=== PATIENT | male | born 1945 | race Caucasian/White ===

== ENCOUNTER → 2017-02-22 | Outpatient (CLI) | payer OTHER, BC | LOC: BMCIMAGING 13:31 | PROVIDERS: ATTEND Podiatrist Foot & Ankle Surgery | DX: M79.671 Pain in right foot (principal); M19.071 Primary osteoarthritis, right ankle and foot ==

== ENCOUNTER → 2017-03-12 | Outpatient (CLI) | payer OTHER, BC | LOC: FCPNEURO 20:00 | PROVIDERS: ATTEND Internal Medicine Sleep Medicine | DX: G47.31 Primary central sleep apnea (principal); G47.33 Obstructive sleep apnea (adult) (pediatric); G47.61 Periodic limb movement disorder ==

== ENCOUNTER → 2017-10-11 | Outpatient (CLI) | payer OTHER, BC | LOC: BHCLAF 09:30 | PROVIDERS: ATTEND Internal Medicine Cardiovascular Disease | DX: R07.89 Other chest pain (principal); I10 Essential (primary) hypertension | CPT/HCPCS: 93005-PO ==

== ENCOUNTER 2017-11-07 12:34 | Emergency (ER) | payer OTHER, BC ==
--- NOTE | 2017-11-07 13:34 | EDPHY ---
H & P Time Seen by Provider: 11/07/17 12:38 HPI/ROS: This patient complains of left leg pain 8/10 intensity sharp feeling associated swelling. The pain is to the posterior calf with swelling evident in the calf and ankle today. Symptoms started early this morning. He took ibuprofen 40 mg at 11:00 a.m. With mild relief and reports worsening when he walks. No other exacerbating factors. He denies any recent injury. He has been undergoing some physical therapy for left knee osteoarthritis and received a steroid injection from Dr. Gaurang Taylor, orthopedist 2 weeks ago without complication. He reports that his knee pain is improved and the calf pain is new again over the past 24 hr. Past Medical/Surgical History: No history of DVT or PE No family history of DVT or PE Social History: No recent prolonged travel, immobilization or surgery Smoking Status: Former smoker Physical Exam: General Appearance: Alert, no distress. Eyes: Pupils equal and round no pallor or injection. ENT, Mouth: Mucous membranes moist. Respiratory: There are no retractions, lungs are clear to auscultation. Cardiovascular: Regular rate and rhythm. No murmur gallop rub. No peripheral edema. No chest wall tenderness. Gastrointestinal: Abdomen is soft and nontender, no masses, bowel sounds normal. Neurological: GCS 15 Skin: Warm and dry, no rashes. Musculoskeletal: Neck is supple nontender. Extremities are symmetrical, full range of motion. Psychiatric: Mood and affect are normal DIFFERENTIAL DIAGNOSIS: After history and physical exam differential diagnosis was considered for [ ] Constitutional: Initial Vital Signs Temperature (C) 36.5 C 11/07/17 12:36 Heart Rate 52 L 11/07/17 12:36 Respiratory Rate 16 11/07/17 12:36 Blood Pressure 155/87 H 11/07/17 12:36 O2 Sat (%) 95 11/07/17 12:36 O2 Delivery Mode Room Air Allergies/Adverse Reactions: No Known Allergies Allergy (Verified 11/07/17 12:45) Home Medications: Medication Instructions Recorded Amlodipine-Olmesartan 10-20 mg 11/07/17 Aspirin/Dipyridamole 11/07/17 Esomeprazole Magnesium 11/07/17 Ezetimibe-Simvastatin 10-10 mg 11/07/17 Hydrochlorothiazide 11/07/17 Magnesium 11/07/17 Potassium Chloride 07/12/18 MDM/Departure - MDM Diagnostics: Doppler ultrasound reveals a Mcadams's cyst without evidence of DVT in the affected left leg. This finding is related via the radiologist report. Imaging: Discussed imaging studies w/ bilingual call center representative Radiologist ED Course/Re-evaluation: The patient declined analgesics for his pain. He is sent for Doppler ultrasound of lower extremity to rule out DVT Counseled patient regarding his Mcadams cyst. No evidence of DVT. The patient was uninterested in any other form of analgesics. I suggest he might benefit from the use of a cane in terms of comfort. He will see his orthopedic physician in 4 days on Saturday for follow-up. - Depart Disposition: Home, Routine, Self-Care Clinical Impression: Mcadams cyst Qualifiers: Laterality: left Qualified Code(s): M71.22 - Synovial cyst of popliteal space [ Mcadams], left knee Leg pain Qualifiers: Laterality: left Qualified Code(s): M79.605 - Pain in left leg Condition: Good Instructions: Bakers Cyst (ED) Additional Instructions: Diagnosis: Mcadams cyst and leg pain Plan: Continue [id number] mg per 6 hr as needed for pain Tylenol in addition if needed Elevate leg whenever possible Follow up with the air cargo specialist on Saturday for further evaluation. Referrals: Alex Gomez MD [Primary Care Provider] - As per Instructions
[2017-11-07 14:39] VITALS: BP 163/92
== END 2017-11-07 14:40 | disposition home or self-care (01) ==
LOC: CED 12:34
DX: M71.22 Synovial cyst of popliteal space [Baker], left knee (principal); Z79.82 Long term (current) use of aspirin; Z87.891 Personal history of nicotine dependence
CPT/HCPCS: 93971-PO

== ENCOUNTER → 2018-01-31 | Outpatient (CLI) | payer OTHER, BC | LOC: BHCLAF 10:45 | PROVIDERS: ATTEND Internal Medicine Cardiovascular Disease | DX: R07.9 Chest pain, unspecified (principal); I10 Essential (primary) hypertension | CPT/HCPCS: 93306-PO ==

== ENCOUNTER → 2018-03-18 | Outpatient (CLI) | payer OTHER, BC | LOC: BHFA 14:00 | PROVIDERS: ATTEND Internal Medicine Cardiovascular Disease | DX: R07.9 Chest pain, unspecified (principal) | CPT/HCPCS: 78452; 93017; A9500; J2785 ==

== ENCOUNTER 2018-07-26 09:47 | Emergency (ER) | payer OTHER, BC ==
[2018-07-26] MEDS ORDERED: ASPIRIN 81 MG CHEWABLE TAB PO ONE (10:03)
--- NOTE | 2018-07-26 10:07 | EDPHY ---
H & P Stated Complaint: cp x 3 days left sided and left back pain Time Seen by Provider: 07/26/18 09:52 HPI/ROS: CHIEF COMPLAINT: Chest pain HISTORY OF PRESENT ILLNESS: Patient is a 73-year-old man with a history of hypertension and a remote history of renal cancer post resection who comes to the emergency department complaining of left-sided chest pain that radiates to his back. He states that it has been constant for 3 days. It is not worsening. He denies shortness of breath but does have increased pain with deep inspiration. His also notes that his pain increases when he walks. He denies this. He cannot describe the pain whether it is sharp or tight or heaviness etc. No fevers. No cough. No shortness of breath. No recent infections. No nausea vomiting. No diaphoresis. His does add that he has had a history of anxiety ever since he was treated for hep C and around the same time self discontinued his Zoloft. No leg pain or swelling. No history of cardiac or pulmonary disease. Severity: Moderate Modifying factors: Worsened Ambulation or deep inspiration REVIEW OF SYSTEMS: Constitutional: denies: chills, fever, recent illness, recent injury EENTM: denies: blurred vision, double vision, nose congestion Respiratory: denies: cough, shortness of breath Cardiac: See HPI Gastrointestinal/Abdominal: denies: abdominal pain, diarrhea, nausea, vomiting, blood streaked stools Genitourinary: denies: dysuria, frequency, hematuria, pain Musculoskeletal: denies: joint pain, muscle pain Skin: denies: lesions, rash, jaundice, bruising Neurological: denies: headache, numbness, paresthesia, tingling, dizziness, weakness Hematologic/Lymphatic: denies: blood clots, easy bleeding, easy bruising Immunologic/allergic: denies: HIV/AIDS, transplant 10 systems reviewed and negative except as noted EXAM: GENERAL: Well-appearing, well-nourished and in no acute distress. HEAD: Atraumatic, normocephalic. EYES: Pupils equal round and reactive to light, extraocular movements intact, sclera anicteric, conjunctiva are normal. ENT: TMs normal, nares patent, oropharynx clear without exudates. Moist mucous membranes. NECK: Normal range of motion, supple without lymphadenopathy or JVD. LUNGS: Breath sounds clear to auscultation bilaterally and equal. No wheezes rales or rhonchi. HEART: Regular rate and rhythm systolic murmur, no rubs or gallops. ABDOMEN: Soft, nontender, normoactive bowel sounds. No guarding, no rebound. No masses appreciated. BACK: No CVA tenderness, no spinal tenderness, step-offs or deformities EXTREMITIES: Normal range of motion, no pitting or edema. No clubbing or cyanosis. NEUROLOGICAL: Cranial nerves II through XII grossly intact. Normal speech, normal gait. 5/5 strength, normal movement in all extremities, normal sensation , normal reflexes PSYCH: Normal mood, normal affect. SKIN: Warm, dry, normal turgor, no visible rashes or lesions. Source: Patient, Family Exam Limitations: No limitations - Personal History Current Tetanus/Diphtheria Vaccine: Unsure Current Tetanus Diphtheria and Acellular Pertussis (TDAP): Unsure - Medical/Surgical History Hx Asthma: No Hx Chronic Respiratory Disease: No Hx Diabetes: No Hx Cardiac Disease: Yes Hx Renal Disease: Yes Hx Cirrhosis: No Hx Alcoholism: No Hx HIV/AIDS: No Hx Splenectomy or Spleen Trauma: No Other PMH: HTN, kidney cancer, HEP C+, CVA, BECK, hyperlipidemia - Family History Significant Family History: No pertinent family hx - Social History Smoking Status: Former smoker Alcohol Use: None Constitutional: Initial Vital Signs Temperature (C) 36.4 C 07/26/18 09:56 Heart Rate 53 L 07/26/18 09:56 Respiratory Rate 18 07/26/18 09:56 Blood Pressure 171/91 H 07/26/18 09:56 O2 Sat (%) 94 07/26/18 09:56 O2 Delivery Mode Room Air Allergies/Adverse Reactions: No Known Allergies Allergy (Verified 07/26/18 09:55) Home Medications: Medication Instructions Recorded Aspirin/Dipyridamole 11/07/17 Esomeprazole Magnesium 11/07/17 Magnesium 11/07/17 Potassium Chloride 11/07/17 Lisinopril/Hctz 20/12.5MG 07/26/18 Pravastatin Sodium 07/26/18 amLODIPine BESYLATE 07/26/18 Medical Decision Making - Diagnostics EKG Interpretation: An EKG obtained and was read and documented in trace view. Please see trace view for full reading and report. Sinus rhythm, no acute ischemic changes Imaging Results: Imaging Impressions Chest X-Ray 07/26/18 10:03 Impression: 1. Suspect airways disease. 2. Borderline cardiac enlargement could reflect congestive failure without pulmonary edema. 3. Aortic tortuosity may reflect arterial hypertension. Chest/Thorax CTA 07/26/18 10:50 Impression: 1. No evidence of pulmonary embolic disease. 2. See above report for additional findings. Results called and discussed with DARIANA ROBLES M.D. on 07/26/2018 at 12:22. Imaging: Discussed imaging studies w/ call center dispatcher Radiologist ED Course/Re-evaluation: The patient's D-dimer and troponin are negative however he has widened mediastinum on chest x-ray. Will order CT angio. He also has slightly low potassium. Will verify this with I-STAT. 12:30 p.m. the patient is feeling much better after IV hydration and potassium supplementation. He does take potassium and magnesium supplementation at home. He takes hydrochlorothiazide and states that he finished a course of steroids last week for an ankle injury and that he was peeing more often than usual with. I encouraged him to speak with his primary doctor about possibly discontinuing the hydrochlorothiazide or increasing his potassium were at least just rechecking in a few days. He will follow up with him in the next few days. Otherwise he feels comfortable going home and we discussed indications for returning. Differential Diagnosis: Partial list of the Differential diagnosis considered include but were not limited to; hypokalemia, anxiety, acute coronary disease and although unlikely based on the history and physical exam, I also considered pneumonia, PE, dissection. - Data Points Laboratory Results: 07/26/18 07/26/18 07/26/18 10:53 10:06 10:05 POC Sodium 144 mEq/L mEq/L (135-145) POC Potassium 2.8 mEq/L L mEq/L 3.0 mEq/L L mEq/L (3.3-5.0) (3.3-5.0) POC Chloride 103.0 mEq/L mEq/L (97-110) POC Total CO2 30 mEq/L mEq/L (22-31) POC BUN 19 mg/dL mg/dL (7-23) POC Creatinine 1.1 mg/dL mg/dL (0.7-1.3) POC Glucose 99 mg/dL mg/dL (70-100) POC Calcium 9.6 mg/dL mg/dL (8.5-10.4) POC Total Bilirubin 0.9 mg/dL mg/dL (0.1-1.4) POC AST 26 IU/L IU/L (17-59) POC ALT 27 IU/L IU/L (21-72) POC Alk Phosphatase 41 IU/L IU/L (38-126) POC Troponin I 0.01 ng/mL ng/mL (0.00-0.08) POC Total Protein 6.8 g/dL g/dL (6.3-8.2) POC Albumin 3.5 g/dL g/dL (3.5-5.0) Medications Given: Discontinued Medications Aspirin (Aspirin) 324 mg PO EDNOW ONE Stop: 07/26/18 10:04 Last Admin: 07/26/18 10:12 Dose: 324 mg Potassium Chloride (Potassium Cl 10 Meq (Premix)) 100 mls @ 100 mls/hr IV ONCE ONE Stop: 07/26/18 12:00 Last Admin: 07/26/18 11:40 Dose: 100 mls Potassium Chloride (Klor Packets) 20 meq PO EDNOW ONE Stop: 07/26/18 11:02 Last Admin: 07/26/18 11:07 Dose: 20 meq Point of Care Test Results: CBC CBC Collection Date 07/26/18 CBC Collection Time 10:00 WBC 6.97 RBC 5.58 HGB 16.9 HCT 48.1 PLT 190 Neut # 4.17 Neut 59.8 LYMPH # 2.07 LYMPH 29.7 MCV 86.2 Chemistry 07/26/18 07/26/18 07/26/18 10:53 10:06 10:05 POC Sodium 144 mEq/L mEq/L (135-145) POC Potassium 2.8 mEq/L L mEq/L 3.0 mEq/L L mEq/L (3.3-5.0) (3.3-5.0) POC Chloride 103.0 mEq/L mEq/L (97-110) POC Total CO2 30 mEq/L mEq/L (22-31) POC BUN 19 mg/dL mg/dL (7-23) POC Creatinine 1.1 mg/dL mg/dL (0.7-1.3) POC Glucose 99 mg/dL mg/dL (70-100) POC Calcium 9.6 mg/dL mg/dL (8.5-10.4) POC Total Bilirubin 0.9 mg/dL mg/dL (0.1-1.4) POC AST 26 IU/L IU/L (17-59) POC ALT 27 IU/L IU/L (21-72) POC Alk Phosphatase 41 IU/L IU/L (38-126) POC Troponin I 0.01 ng/mL ng/mL (0.00-0.08) POC Total Protein 6.8 g/dL g/dL (6.3-8.2) POC Albumin 3.5 g/dL g/dL (3.5-5.0) Comprehensive Metabolic Panel CMP Collection Date 07/26/18 CMP Collection Time 10:00 D-Dimer D-Dimer Collection Date 07/26/18 D-Dimer Collection Time 10:00 D-Dimer (ng/ml) <100 Departure - Departure Disposition: Home, Routine, Self-Care Clinical Impression: Hypokalemia Condition: Fair Instructions: Hypokalemia (ED) Additional Instructions: Speak with Dr. Gomez about your low potassium and possibly discontinuing the HCTZ or increasing your potassium supplementation. Referrals: Alex Gomez MD [Primary Care Provider] - 2-3 days, call for appt.
--- NOTE | 2018-07-26 10:09 | CPEKG ---
Test Reason : OPEN Blood Pressure : / mmHG Vent. Rate : 055 BPM Atrial Rate : 055 BPM P-R Int : 208 ms QRS Dur : 102 ms QT Int : 442 ms P-R-T Axes : -12 -28 -03 degrees QTc Int : 423 ms Sinus rhythm Borderline left axis deviation Confirmed by Car Hudson ([id number] on 07/26/2018 10:09:08 AM Referred By: Car Hudson Confirmed By:Car Hudson
[2018-07-26] MEDS ORDERED: IOPAMIDOL (ISOVUE 370) 100 ML BTL IV ONE (10:57)
[2018-07-26] MEDS ORDERED: POTASSIUM CL 20 MEQ PKT PO ONE (11:01)
[2018-07-26] MEDS ORDERED: POTASSIUM Cl (KCl) 100 ML IV ONE (11:01)
[2018-07-26 12:54] VITALS: BP 155/88
== END 2018-07-26 13:10 | disposition home or self-care (01) ==
LOC: CED 09:47
DX: E87.6 Hypokalemia (principal); E86.9 Volume depletion, unspecified; I10 Essential (primary) hypertension; B19.20 Unspecified viral hepatitis C without hepatic coma
CPT/HCPCS: 71046; 71275; 93005; 96365; 99285; J3480; Q9967; 80053-ER; 84132-PO; 84484-ER; 85025-QW-ER; 85379-QW-ER